=== PATIENT | male | born 1950 | race Caucasian/White ===

== ENCOUNTER → 2016-03-22 | Outpatient (CLI) | payer BC, SELFPAY ==
--- NOTE | 2016-03-22 13:47 | MRI ---
EXAM DESCRIPTION: MR LUMBAR SPINE WITHOUT IV CONTRAST CLINICAL HISTORY: RADICULOPATHY COMPARISON: None Available. TECHNIQUE: Multi plantar multi sequence non contrast imaging. FINDINGS: There is good alignment of the lumbar spine. There is no vertebral pathology. A lower pole right renal cyst is observed. No further extra spinous abnormality is detected. L1-2: Unremarkable. L2-3: Unremarkable. L3-4: The disc is desiccated. Mild loss of disc height is observed. A central annular bulge is observed. A small central annular fissure is noted. No neural foraminal disease of significance is detected. Facet joint arthritis is observed more pronounced to the right. L4-5: A right-sided disc extrusion is observed and is seen to extend up along the right posterior aspect of the L4 vertebral body. It extends back 6 mm. Mild right neural foraminal compromise is observed. Of the left neural foramen is patent. A central annular fissure is noted. The disc is desiccated. L5-S1: The disc is desiccated. No significant disk bulge or disk herniation is seen. Marked facet joint arthritis is observed with hypertrophy. No neural foraminal disease of significance is detected. IMPRESSION: 1. A right-sided disc extrusion is seen to extend back behind the L4 vertebral body. I am uncertain whether it originates from the L3-4 or L4-5 level. 2. Facet joint arthritis is observed the lower lumbar spine with mild narrowing of the neural foramina at the L4-5 and L5-S1 levels. It is most pronounced at the L4 level to the right. Electronically signed by: Brendan Nichole MD 03/22/2016 13:45
== END | disposition home or self-care (01) ==
LOC: MRI 10:45
PROVIDERS: ATTEND Physical Medicine & Rehabilitation
DX: M51.27 Other intervertebral disc displacement, lumbosacral region (principal)

== ENCOUNTER → 2017-07-13 | Outpatient (CLI) | payer MEDICARE, OTHER ==
--- NOTE | 2017-07-13 15:29 | CT ---
EXAM DESCRIPTION: Abdomen/Pelvis w/wo Contrast CLINICAL HISTORY: 67 years Male, GENERALIZED ABDOMINAL PAIN, HISTORY OF PROSTATE CANCER COMPARISON: CT abdomen and pelvis with contrast dated 09/05/2012. TECHNIQUE: Contiguous 3 mm axial images were obtained from the lung bases to the level of the proximal femora before and after the administration of intravenous contrast. Sagittal and coronal reconstructions were reviewed. FINDINGS: THORAX: The imaged lower thorax demonstrates no gross abnormality. LIVER: The liver demonstrates normal size and density with no intrahepatic biliary ductal dilatation or focal masses. GALLBLADDER: Surgically absent. PANCREAS: Appears normal with no cystic or solid lesions. SPLEEN: Normal ADRENAL GLANDS: Normal with no nodules or masses. KIDNEYS: Multiple bilateral renal calculi measuring up to 3 mm identified. A simple cyst is noted in the inferior pole of the right kidney. No hydronephrosis or nephrolithiasis or perinephric fluid collections bilaterally. No focal masses are identified. The visualized ureters appear grossly unremarkable. STOMACH: Small hiatal hernia is noted with evidence of reflux. The stomach is not well-distended limiting detailed evaluation. SMALL BOWEL: The small bowel loops demonstrate variable degrees of distention with no abnormal dilatation or other signs to suggest bowel obstruction. LARGE BOWEL: Mild constipation is noted. The appendix is well-visualized and appears normal No evidence of free intraperitoneal air or fluid. RETROPERITONEUM: The abdominal aorta is nonaneurysmal with minimal atherosclerosis. The inferior vena cava is normal in size and caliber. No abnormally enlarged retroperitoneal lymph nodes are identified. URINARY BLADDER: The urinary bladder is well-distended and demonstrates mildly thick wall which could be secondary to chronic bladder outlet obstruction. The prostate gland demonstrates few calcifications. ADDITIONAL FINDINGS: None. BONES: Mild degenerative changes are identified in the visualized bones.No evidence of osteophytic or osteoblastic lesions. IMPRESSION: 1. Multiple bilateral nonobstructive renal calculi. 2. Constipation. This exam was performed according to our departmental dose-optimization program, which includes automated exposure control, adjustment of the mA and/or kV according to patient size and/or use of iterative reconstruction technique. Electronically signed by: Cathy Velasquez MD 07/13/2017 3:28 PM CDT
== END ==
LOC: CT 09:39
PROVIDERS: ATTEND Family Medicine
DX: R10.84 Generalized abdominal pain (principal); Z85.46 Personal history of malignant neoplasm of prostate

== ENCOUNTER → 2018-02-22 | Outpatient (CLI) | payer MEDICARE, OTHER ==
--- NOTE | 2018-02-22 08:19 | MRI ---
EXAM DESCRIPTION: Lumbar Spine w/wo Contrast CLINICAL HISTORY: RADICULOPATHY, LUMBAR REGION. M54.16 COMPARISON: March 22, 2016 TECHNIQUE: Multiplanar MRI of the lumbar spine was performed with and without contrast. FINDINGS: Lumbar vertebral body heights are maintained. Normal alignment of the lumbar spine is seen. Horizontal positioning of the upper sacrum without evidence for spondylolysis is seen. 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 Fluid signal right parapelvic cyst incompletely visualized measuring 2.8 cm is similar to previous exam. Conus medullaris terminates at L1-L2 which is mildly low-lying. Desiccation of the disc spaces throughout the lumbar spine are seen. Mild anterior disc bulging from T12 through S1 is seen. L1-2 No significant findings L2-3 No spinal canal stenosis. Mild left foraminal to extraforaminal 2 mm disc bulging mildly encroaches on the perineural fat of the exiting L2 nerve root. L3-4 Mild diffuse disc space narrowing is again seen. Linear focus of increased T2 signal in the posterior annulus to the right of midline is seen. 2 to 3 mm broad-based disc bulge mildly flattens ventral surface of the thecal sac. Mild right greater than left facet hypertrophic and degenerative changes with small right facet joint effusion and mild ligament flavum thickening is seen. Mild spinal canal stenosis and lateral recess encroachment is seen with mild left and moderate right foraminal encroachment similar to previous. Mild enhancement in the soft tissue posterior to the right facet joint suggesting acute inflammation. L4-5 Mild posterior disc space narrowing. Trace anterolisthesis of L4 on L5 is stable. Central linear increased T2 signal in the posterior annulus is less pronounced than previous exam is symmetric towards the right. 4 mm broad-based disc bulge is seen. Moderate left greater than right facet hypertrophic and degenerative changes with small bilateral facet joint effusions and moderate ligamentum flavum thickening is seen. Mild spinal canal stenosis. The thecal sac measures 7 mm AP centrally similar to previous. Moderate left lateral recess encroachment is seen. At least moderate bilateral foraminal encroachment on the exiting L4 nerve roots similar to previous. No abnormal enhancement is seen. L5-S1 Linear annular tear centrally and towards the left is again seen. 2 mm anterolisthesis of L5 on S1 is again noted with mild uncovering of the disc. Moderate bilateral facet hypertrophic and degenerative changes with small right facet joint effusion. No spinal canal stenosis. Mild right and mild to moderate left foraminal encroachment is seen. 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 Multifactorial mild spinal canal stenosis at L3-4 and L4-5. Multilevel, multifactorial foraminal encroachment is seen most prominent on the right at L3-4, bilaterally at L4-5, and on the left at L5-S1. Trace degenerative anterolisthesis at L5-S1 is seen. Electronically signed by: Cain Melendez MD 02/22/2018 8:18 AM [facility]
== END ==
LOC: MRI 07:00
PROVIDERS: ATTEND Physician Assistant Medical
DX: M51.16 Intervertebral disc disorders with radiculopathy, lumbar region (principal); M51.36 Other intervertebral disc degeneration, lumbar region; M48.061 Spinal stenosis, lumbar region without neurogenic claudication

== ENCOUNTER → 2018-11-12 | Outpatient (CLI) | payer MEDICARE, OTHER | LOC: GMAM 11:10 | PROVIDERS: ATTEND Family Medicine | DX: C61 Malignant neoplasm of prostate (principal); R53.83 Other fatigue; I10 Essential (primary) hypertension ==

== ENCOUNTER → 2019-01-27 | Outpatient (CLI) | payer MEDICARE, OTHER ==
--- NOTE | 2019-01-27 12:28 | US ---
EXAM DESCRIPTION: Carotid Duplex CLINICAL HISTORY: OCCLUSION AND STENOSIS OF UNSPEC. CAROTID ARTERY COMPARISON: None Available. TECHNIQUE: Carotid Doppler ultrasound FINDINGS: Right Submitted images show extensive calcified plaque at the right carotid bifurcation. The following flow velocities were obtained: Common carotid artery peak systolic flow velocity measures 79 centimeters per second. Internal carotid artery peak systolic flow velocity measures 69 centimeters per second. External carotid artery peak systolic flow velocity measures 77 centimeters per second. Flow in the right vertebral artery is antegrade. The right internal carotid to common carotid peak systolic flow velocity ratio equals 0.9 which is normal. Left Submitted images show calcified plaque of the left carotid bifurcation. Left ECA flow velocity is elevated with mild proximal stenosis. The following flow velocities were obtained: Common carotid artery peak systolic flow velocity measures 81 centimeters per second. Internal carotid artery peak systolic flow velocity measures 97 centimeters per second. External carotid artery peak systolic flow velocity measures 155 centimeters per second. Flow in the left vertebral artery is antegrade. The left internal carotid to common carotid peak systolic flow velocity ratio of 1.1 is normal. IMPRESSION: Mild proximal stenosis with elevated flow velocity in the left ECA. Otherwise no hemodynamically significant stenosis. Electronically signed by: Gene Steiner MD 01/27/2019 12:27 PM [employer]
--- NOTE | 2019-01-27 12:34 | US ---
Exam: Bilateral lower extremity arterial Doppler sonogram CLINICAL HISTORY: Abnormal results of other cardiovascular function study TECHNIQUE: Doppler sonographic evaluation of the bilateral lower extremities was performed. FINDINGS: Right Submitted sonographic images reveal patent vessels with no significant stenosis. Normal flow velocities with multiphasic flow throughout the right lower extremity. Mild calcified plaque in the right lower extremity arteries. The following peak systolic flow flow velocity measurements were obtained: Common femoral artery velocity equals 63 centimeters per second , triphasic. Superficial femoral artery velocity equals 64-68 centimeters per second , triphasic. Popliteal artery velocity equals 41 centimeters per second , triphasic. Peroneal artery velocity equals 59 centimeters per second , biphasic. Posterior tibial artery velocity equals 44 centimeters per second , biphasic. Dorsalis pedis artery velocity equals 27 centimeters per second , biphasic. Left Submitted sonographic images reveal mild calcified plaque in the left lower extremity arteries. No significant stenosis. The following peak systolic flow flow velocity measurements were obtained: Common femoral artery velocity equals 69 centimeters per second , triphasic. Superficial femoral artery velocity equals 73-83 centimeters per second , triphasic. Popliteal artery velocity equals 53 centimeters per second , triphasic. Peroneal artery velocity equals 74 centimeters per second , biphasic. Posterior tibial artery velocity equals 81 centimeters per second , triphasic. Dorsalis pedis artery velocity equals 15 centimeters per second , biphasic. IMPRESSION: Normal multiphasic flow in the lower extremity arteries with no significant stenosis. Electronically signed by: Gene Steiner MD 01/27/2019 12:33 PM [employer]
== END ==
LOC: US 10:27
PROVIDERS: ATTEND Family Medicine
DX: I65.22 Occlusion and stenosis of left carotid artery (principal); R94.39 Abnormal result of other cardiovascular function study

== ENCOUNTER → 2019-08-06 | Outpatient (CLI) | payer MEDICARE, OTHER | LOC: GMAM 17:20 | PROVIDERS: ATTEND Family Medicine | DX: M25.521 Pain in right elbow (principal) ==